=== PATIENT | female | born 1960 | race African-American/Black ===

== ENCOUNTER → 2016-12-28 | Outpatient (CLI) | payer MEDICARE, OTHER ==
[~2016-12-28] MED LIST: CYMBALTA; FLEXERIL10 MG PO; IBUPROFEN800 MG PO; KETOPROFEN PO; LEVAQUIN750 MG PO; MEDROL4 MG/DOSE- PO; SEROQUEL PO; ZOLOFT PO
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
== END | disposition home or self-care (01) ==
LOC: CMRI 07:42
DX: M17.12 Unilateral primary osteoarthritis, left knee (principal); M22.42 Chondromalacia patellae, left knee; M25.462 Effusion, left knee
CPT/HCPCS: 73721

== ENCOUNTER → 2017-01-27 | Outpatient (CLI) | payer MEDICARE, OTHER ==
--- NOTE | ~2017-01-27 | CR63 ---
[facility] A Service of [facility] & [facility] RADIOLOGY TEXT RESULTS PATIENT: LEONOR DOLL LOCATION: [facility] : 56 UNIT #: [id number] AGE: [address]: Coleman Ye MD SEX: F ORDER DR: [id number] [facility] [address] [place], [place] [address] [id number] O MR#: [id number] Acc #: [id number] NAME: LEONOR DOLL : 1960 SEX: F STUDY DATE/TIME: 01/27/2017 13:23 UNIT: [facility] ROOM: STUDY DESCRIPTION: CR Chest 2 View Attending Physician: Coleman Ye M.D. Ordering Physician: Coleman Ye M.D. Primary Care Physician: [facility], [facility]. MEDICAL IMAGING REPORT This report is preliminary unless electronic signature is present EXAM Chest x-ray 01/27/2017 HISTORY Lung cancer with shortness of breath over the past month. TECHNIQUE 2 views of the chest were obtained and compared with 01/21/2017 FINDINGS Cardiomegaly is again seen and unchanged. Since the previous examination right-sided infiltrates have improved. No new infiltrates are seen on either side. Vascular markings are normal and no enlarging pleural effusions are seen. IMPRESSION Partial clearing of right-sided infiltrate is noted since the previous exam. No new infiltrates are seen. Dictated by... Aniceto Rollins M.D. THIS IS AN ELECTRONICALLY VERIFIED REPORT Aniceto Rollins M.D. at 01/27/2017 6:02 PM Cliff TD: 01/27/2017 15:12 JOB #: [id number] MEDICAL IMAGING REPORT Page 1 of 1 COPY
== END | disposition home or self-care (01) ==
LOC: CRAD 13:00
DX: C34.90 Malignant neoplasm of unspecified part of unspecified bronchus or lung (principal); R91.8 Other nonspecific abnormal finding of lung field
CPT/HCPCS: 71020

== ENCOUNTER → 2017-05-05 | Outpatient (CLI) | payer MEDICARE, OTHER ==
--- NOTE | ~2017-05-05 | CR63 ---
[facility] A Service of [facility] RADIOLOGY TEXT RESULTS PATIENT: LEONOR DOLL LOCATION: [facility] : 56 UNIT #: [id number] AGE: [address]: Coleman Ye MD SEX: F ORDER DR: [id number] [facility] [address] [place], [place] [address] [id number] O MR#: [id number] Acc #: [id number] NAME: LEONOR DOLL : 1960 SEX: F STUDY DATE/TIME: 05/05/2017 13:37 UNIT: [facility] ROOM: STUDY DESCRIPTION: CR Chest 2 View Attending Physician: Coleman Ye M.D. Referring Physician: Coleman Ye M.D. Ordering Physician: Coleman Ye M.D. MEDICAL IMAGING REPORT This report is preliminary unless electronic signature is present EXAM Two views chest 05/05/2017 HISTORY Lung cancer. Pain in left chest x1 month. Lung cancer December 29, 2016. Smoker since age 14. TECHNIQUE PA and lateral radiographs chest are presented. COMPARISON STUDIES Chest radiograph 03/18/[address] 03/18/2017. FINDINGS No acute-appearing bony abnormality. Patient is status post left upper lobectomy. There is volume loss in the left hemithorax. Chronic small left pleural effusion, probably decreased from the chest radiograph of 03/18/2017. Probable atelectasis at the left lung base adjacent to the pleural effusion. There is no compelling evidence of pneumonia. There is no pulmonary edema and no suspicious nodule. The right lung is clear. Prior cholecystectomy. Heart normal in size. Dictated by... Anand Laguerre M.D. THIS IS AN ELECTRONICALLY VERIFIED REPORT Anand Laguerre M.D. at 05/06/2017 9:40 PM KITTY/alley TD: 05/05/2017 22:01 JOB #: [id number] [facility] A Service of [facility] RADIOLOGY TEXT RESULTS PATIENT: LEONOR DOLL LOCATION: [facility] : 56 UNIT #: [id number] AGE: [address]: Coleman Ye MD SEX: F ORDER DR: MEDICAL IMAGING REPORT Page 1 of 1 COPY
== END | disposition home or self-care (01) ==
LOC: CRAD 13:12
DX: C34.90 Malignant neoplasm of unspecified part of unspecified bronchus or lung (principal)
CPT/HCPCS: 71020